=== PATIENT | female | born 1980 | race Caucasian/White ===

== ENCOUNTER 2017-04-02 18:04 | Emergency (ER) | payer MEDICARE, MEDICAID ==
[2017-04-02] MEDS ORDERED: DIPH/PERTUSS(ACELL)/TETANUS VAC/PF 0.5 ML SYR (>=10YO) IM ONE (18:40)
--- NOTE | 2017-04-02 18:45 | RADIOLOGY REPORT (SQ) ---
EXAM DESCRIPTION: WRIST RIGHT 3 VIEWS COMPLETED DATE/TIME: 04/02/2017 6:34 pm REASON FOR STUDY: Laceration/ pain poss FB COMPARISON: None. NUMBER OF VIEWS: Three views. TECHNIQUE: AP, lateral, and oblique radiographic images acquired of the right wrist. LIMITATIONS: None. FINDINGS: MINERALIZATION: Normal. BONES: No acute fracture or dislocation. No worrisome bone lesions. Normal alignment. SOFT TISSUES: No soft tissue swelling. No foreign body. OTHER: No other significant finding. IMPRESSION: NEGATIVE STUDY OF THE RIGHT WRIST. NO RADIOGRAPHIC EVIDENCE OF ACUTE INJURY. TECHNICAL DOCUMENTATION: JOB ID: [id number] [employer]- All Rights Reserved
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
[2017-04-02] MEDS ORDERED: LIDOCAINE 1% INJ-PF (10 MG/ML) 30 ML SDV INJ ONE (19:19)
[2017-04-02 20:01] VITALS: BP 115/80
== END 2017-04-02 20:01 | disposition home or self-care (01) ==
LOC: ER 18:04
DX: S61.511A Laceration without foreign body of right wrist, initial encounter (principal); S60.511A Abrasion of right hand, initial encounter; W25.XXXA Contact with sharp glass, initial encounter; F17.200 Nicotine dependence, unspecified, uncomplicated; Z23 Encounter for immunization
CPT/HCPCS: 90471; 90715; 99283

== ENCOUNTER 2017-07-05 09:58 | Emergency (ER) | payer MEDICARE, MEDICAID ==
--- NOTE | 2017-07-05 10:17 | ER Document Report ---
HPI - HPI Patient complains to provider of: Loose tooth and dental abscess Onset: Yesterday Onset/Duration: Gradual Pain Level: 3 Context: 36-year-old female has had a loose tooth lower right molar and now she has not an associated abscess behind it. No facial swelling. No fever. Associated Symptoms: None Exacerbated by: Denies Relieved by: Denies Similar symptoms previously: No Recently seen / treated by doctor: No - ROS ROS below otherwise negative: Yes Systems Reviewed and Negative: Yes All other systems reviewed and negative Past Medical History - General Information source: Patient - Social History Smoking Status: Current Every Day Smoker Frequency of alcohol use: None Drug Abuse: None Lives with: Family Family History: Reviewed & Not Pertinent Neurological Medical History: Reports: Hx Migraine Renal/ Medical History: Denies: Hx Peritoneal Dialysis Musculoskeltal Medical History: Reports Hx Arthritis Psychiatric Medical History: Reports: Hx Borderline Personality Disorder, Hx Depression Past Surgical History: Reports: Hx Tubal Ligation - Immunizations Hx Diphtheria, Pertussis, Tetanus Vaccination: Yes Vertical Provider Document - CONSTITUTIONAL Agree With Documented VS: Yes Exam Limitations: No Limitations - INFECTION CONTROL TRAVEL OUTSIDE OF THE [place] IN LAST 30 DAYS: No - HEENT HEENT: Normocephalic Notes: Loose third molar lower right side with fluctuant abscess that is not draining at this time adjacent to the tooth. - NECK Neck: Supple. negative: Lymphadenopathy-Left, Lymphadenopathy-Right - RESPIRATORY O2 Sat by Pulse Oximetry: 97 - NEURO Level of Consciousness: Awake, Alert, Appropriate Course - Vital Signs Vital signs: Temp Pulse Resp BP Pulse Ox 98.1 F 105 H 16 173/79 H 97 07/05/17 10:14 07/05/17 10:14 07/05/17 10:14 07/05/17 10:14 07/05/17 10:14 Discharge - Discharge Clinical Impression: Dental abscess Condition: Good Disposition: HOME, SELF-CARE Instructions: Dentist, Dental Infection or Abscess ([facility]), Penicillin V K ([facility]) , Toothache ([facility]) Additional Instructions: See the dentist Warm compress Penicillin to kill the infection Return to the emergency room for increased swelling or fever Prescriptions: Ibuprofen [Motrin 800 mg Tablet] 800 mg PO Q8HP PRN #30 tablet PRN Reason: Penicillin V Potassium [Penicillin Vk 500 mg Tablet] 500 mg PO QID #40 tablet Referrals: TIMOTHY GREER DO [Primary Care Provider] - Follow up as needed
[2017-07-05] MEDS ORDERED: ACETAMINOPHEN 325 MG TABLET PO ONE (10:43)
[2017-07-05] MEDS ORDERED: IBUPROFEN 800 MG TABLET PO ONE (10:43)
[2017-07-05] MEDS ORDERED: PENICILLIN V POTASSIUM 500 MG TABLET PO ONE (10:43)
[2017-07-05 11:22] VITALS: BP 121/85
== END 2017-07-05 11:22 | disposition home or self-care (01) ==
LOC: ER 09:58
DX: K04.7 Periapical abscess without sinus (principal); F17.200 Nicotine dependence, unspecified, uncomplicated; Z98.51 Tubal ligation status
CPT/HCPCS: 99282; A9270 ×3

== ENCOUNTER 2019-01-26 14:49 | Emergency (ER) | payer MEDICARE, MEDICAID ==
--- NOTE | 2019-01-26 15:03 | ER Document Report ---
Addendum entered and electronically signed by POOL SANTANA NP 01/26/19 19:41: Course - Re-evaluation Re-evalutation: 01/26/19 19:41 Late entry this patient does have visual lice noted in her hair. - Vital Signs Vital signs: Temp Pulse Resp BP Pulse Ox 98.6 F 101 H 16 144/80 H 98 01/26/19 15:01 01/26/19 15:01 01/26/19 15:01 01/26/19 15:01 01/26/19 15:01 Original Note: HPI - HPI Patient complains to provider of: Lice infestation Time Seen by Provider: 01/26/19 15:00 Onset: Other Onset/Duration: Persistent Pain Level: Denies Context: Patient presents to the emergency department with her family of 7 for complaints of lice infestation. Patient reports daughter started with lisinopril everybody has it in the family. She reports she is cleaning the house thrown out stuffed animals and still have lice. She reports her sister's hair is full lice. Some the children do not have lice. They have been treated but the lice have returned. No other symptoms such as fever vomiting diarrhea. Associated Symptoms: None Exacerbated by: Denies Relieved by: Denies Similar symptoms previously: Yes Recently seen / treated by doctor: Yes - REPRODUCTIVE Reproductive: DENIES: : Past Medical History - General Information source: Patient - Social History Smoking Status: Unknown if Ever Smoked Cigarette use (# per day): No Frequency of alcohol use: None Drug Abuse: None Lives with: Family Family History: Reviewed & Not Pertinent Patient has suicidal ideation: No Patient has homicidal ideation: No Neurological Medical History: Reports: Hx Migraine Renal/ Medical History: Denies: Hx Peritoneal Dialysis Musculoskeletal Medical History: Reports Hx Arthritis Psychiatric Medical History: Reports: Hx Borderline Personality Disorder, Hx Depression Past Surgical History: Reports: Hx Tubal Ligation - Immunizations Hx Diphtheria, Pertussis, Tetanus Vaccination: Yes Vertical Provider Document - CONSTITUTIONAL Agree With Documented VS: Yes Exam Limitations: No Limitations General Appearance: WD/WN, No Apparent Distress - INFECTION CONTROL TRAVEL OUTSIDE OF THE [place] IN LAST 30 DAYS: No - HEENT HEENT: Atraumatic - NECK Neck: Supple - RESPIRATORY Respiratory: No Respiratory Distress - MUSCULOSKELETAL/EXTREMETIES Musculoskeletal/Extremeties: MAEW, FROM - NEURO Level of Consciousness: Awake, Alert, Appropriate Motor/Sensory: No Motor Deficit - DERM Integumentary: Warm, Dry Course - Re-evaluation Re-evalutation: 01/26/19 19:36 Patient has her hair up in a plastic shower cap. Sister has multiple lice visualized. We will treat entire family for lice. Mother was instructed on care and treatment of lice. She verbalized understanding. Dictation of this chart was performed using voice recognition software; theref ore, there may be some unintended grammatical errors. Discharge - Discharge Clinical Impression: Lice infestation Condition: Stable Disposition: HOME, SELF-CARE Instructions: Head Lice ([facility]) Additional Instructions: *You have been evaluated for lice *apply medication as prescribed Head lice: Topical: Cream rinse/lotion : Prior to application, wash hair with conditioner-free shampoo; rinse with water and towel dry. Apply a sufficient amount of lotion or cream rinse to saturate the hair and scalp (especially behind the ears and nape of neck). Leave on hair for 10 minutes (but no longer), then rinse off with warm water; remove remaining nits with nit comb. A single application is generally sufficient; however, may repeat 7 days after first treatment if lice or nits are still present. *Follow up with your primary care provider within one week *Return to ED for worsening condition, changes, needs * Prescriptions: Permethrin [Lice Bedding] 142 gm MC DAILY #1 spray Permethrin [Nix 1% Lotion 59 ml] 1 applic TP DAILY #1 bottle Permethrin [Nix 1% Lotion 59 ml] 1 applic TP NOW #1 bottle Referrals: TIMOTHY GREER DO [NO LOCAL MD] - Follow up in 1 week
[2019-01-26 15:21] VITALS: BP 144/80
== END 2019-01-26 15:45 | disposition home or self-care (01) ==
LOC: ER 14:49
DX: B85.2 Pediculosis, unspecified (principal)
CPT/HCPCS: 99283